=== PATIENT | female | born 1935 | race Caucasian/White ===

== ENCOUNTER → 2018-06-22 | Outpatient (CLI) | payer MEDICARE | END | disposition home or self-care (01) | LOC: CVU 13:32 | PROVIDERS: ATTEND Internal Medicine Cardiovascular Disease | DX: I65.23 Occlusion and stenosis of bilateral carotid arteries (principal); I10 Essential (primary) hypertension; Z85.3 Personal history of malignant neoplasm of breast | CPT/HCPCS: 93880 ==

== ENCOUNTER → 2018-09-08 | Outpatient (CLI) | payer MEDICARE | END | disposition home or self-care (01) | LOC: CFH 13:20 | PROVIDERS: ATTEND Family Medicine | DX: Z12.31 Encounter for screening mammogram for malignant neoplasm of breast (principal); Z13.820 Encounter for screening for osteoporosis; M81.0 Age-related osteoporosis without current pathological fracture | CPT/HCPCS: 77080; 77067 ==

== ENCOUNTER → 2018-10-24 | Outpatient (CLI) | payer MEDICARE | END | disposition home or self-care (01) | LOC: CFH 07:32 | PROVIDERS: ATTEND Family Medicine | DX: N63.11 Unspecified lump in the right breast, upper outer quadrant (principal) | CPT/HCPCS: 77065 ==

== ENCOUNTER → 2019-10-03 | Outpatient (CLI) | payer MEDICARE | END | disposition home or self-care (01) | LOC: RAD 10:13 | PROVIDERS: ATTEND Family Medicine | DX: M71.21 Synovial cyst of popliteal space [Baker], right knee (principal) ==

== ENCOUNTER → 2019-10-05 | Outpatient (CLI) | payer MEDICARE | END | disposition home or self-care (01) | LOC: WOUND 09:51 | PROVIDERS: ATTEND Podiatrist Foot & Ankle Surgery | DX: T87.89 Other complications of amputation stump (principal); L97.511 Non-pressure chronic ulcer of other part of right foot limited to breakdown of skin; I89.0 Lymphedema, not elsewhere classified; I10 Essential (primary) hypertension; Z85.3 Personal history of malignant neoplasm of breast; M81.0 Age-related osteoporosis without current pathological fracture; Z89.431 Acquired absence of right foot; Z90.710 Acquired absence of both cervix and uterus; Y83.5 Amputation of limb(s) as the cause of abnormal reaction of the patient, or of later complication, without mention of misadventure at the time of the procedure | CPT/HCPCS: 97597; G0463 ==

== ENCOUNTER 2019-10-12 14:47 | Outpatient (CLI) | payer MEDICARE | END 2019-10-12 23:59 | disposition home or self-care (01) | LOC: WOUND 14:47 | PROVIDERS: ATTEND Podiatrist Foot & Ankle Surgery | DX: T87.89 Other complications of amputation stump (principal); L97.511 Non-pressure chronic ulcer of other part of right foot limited to breakdown of skin; I89.0 Lymphedema, not elsewhere classified; I10 Essential (primary) hypertension; M81.0 Age-related osteoporosis without current pathological fracture; Z85.3 Personal history of malignant neoplasm of breast; Z89.431 Acquired absence of right foot; Z90.710 Acquired absence of both cervix and uterus; Y83.5 Amputation of limb(s) as the cause of abnormal reaction of the patient, or of later complication, without mention of misadventure at the time of the procedure | CPT/HCPCS: 97597 ==

== ENCOUNTER 2019-10-19 10:21 | Outpatient (CLI) | payer MEDICARE | END 2019-10-19 23:59 | disposition home or self-care (01) | LOC: WOUND 10:21 | PROVIDERS: ATTEND Podiatrist Foot & Ankle Surgery | DX: T87.89 Other complications of amputation stump (principal); L97.511 Non-pressure chronic ulcer of other part of right foot limited to breakdown of skin; I89.0 Lymphedema, not elsewhere classified; I10 Essential (primary) hypertension; M81.0 Age-related osteoporosis without current pathological fracture; Z85.3 Personal history of malignant neoplasm of breast; Z89.431 Acquired absence of right foot; Z90.710 Acquired absence of both cervix and uterus; Y83.5 Amputation of limb(s) as the cause of abnormal reaction of the patient, or of later complication, without mention of misadventure at the time of the procedure | CPT/HCPCS: 97597 ==

== ENCOUNTER 2019-10-26 09:51 | Outpatient (CLI) | payer MEDICARE | END 2019-10-26 23:59 | disposition home or self-care (01) | LOC: WOUND 09:51 | PROVIDERS: ATTEND Podiatrist Foot & Ankle Surgery | DX: T87.89 Other complications of amputation stump (principal); L97.511 Non-pressure chronic ulcer of other part of right foot limited to breakdown of skin; I89.0 Lymphedema, not elsewhere classified; I10 Essential (primary) hypertension; M81.0 Age-related osteoporosis without current pathological fracture; Z85.3 Personal history of malignant neoplasm of breast; Z89.431 Acquired absence of right foot; Z90.710 Acquired absence of both cervix and uterus; Y83.5 Amputation of limb(s) as the cause of abnormal reaction of the patient, or of later complication, without mention of misadventure at the time of the procedure | CPT/HCPCS: 97597 ==

== ENCOUNTER → 2019-11-02 | Outpatient (CLI) | payer MEDICARE | END | disposition home or self-care (01) | LOC: WOUND 10:15 | PROVIDERS: ATTEND Podiatrist Foot & Ankle Surgery | DX: T87.89 Other complications of amputation stump (principal); L97.511 Non-pressure chronic ulcer of other part of right foot limited to breakdown of skin; I89.0 Lymphedema, not elsewhere classified; I10 Essential (primary) hypertension; M81.0 Age-related osteoporosis without current pathological fracture; Z85.3 Personal history of malignant neoplasm of breast; Z89.431 Acquired absence of right foot; Z90.710 Acquired absence of both cervix and uterus; Y83.5 Amputation of limb(s) as the cause of abnormal reaction of the patient, or of later complication, without mention of misadventure at the time of the procedure | CPT/HCPCS: 97597 ==

== ENCOUNTER 2019-11-09 14:01 | Outpatient (CLI) | payer MEDICARE | END 2019-11-09 23:59 | disposition home or self-care (01) | LOC: WOUND 14:01 | PROVIDERS: ATTEND Podiatrist Foot & Ankle Surgery | DX: T87.89 Other complications of amputation stump (principal); L97.511 Non-pressure chronic ulcer of other part of right foot limited to breakdown of skin; I89.0 Lymphedema, not elsewhere classified; I10 Essential (primary) hypertension; M81.0 Age-related osteoporosis without current pathological fracture; Z85.3 Personal history of malignant neoplasm of breast; Z89.431 Acquired absence of right foot; Z90.710 Acquired absence of both cervix and uterus; Y83.5 Amputation of limb(s) as the cause of abnormal reaction of the patient, or of later complication, without mention of misadventure at the time of the procedure | CPT/HCPCS: 97597 ==

== ENCOUNTER → 2019-11-16 | Outpatient (CLI) | payer MEDICARE | END | disposition home or self-care (01) | LOC: WOUND 14:18 | PROVIDERS: ATTEND Podiatrist Foot & Ankle Surgery | DX: T87.89 Other complications of amputation stump (principal); L97.511 Non-pressure chronic ulcer of other part of right foot limited to breakdown of skin; I89.0 Lymphedema, not elsewhere classified; I10 Essential (primary) hypertension; M81.0 Age-related osteoporosis without current pathological fracture; Z85.3 Personal history of malignant neoplasm of breast; Z89.431 Acquired absence of right foot; Z90.710 Acquired absence of both cervix and uterus; Y83.5 Amputation of limb(s) as the cause of abnormal reaction of the patient, or of later complication, without mention of misadventure at the time of the procedure | CPT/HCPCS: 97597 ==

== ENCOUNTER 2019-11-23 14:58 | Outpatient (CLI) | payer MEDICARE | END 2019-11-23 23:59 | disposition home or self-care (01) | LOC: WOUND 14:58 | PROVIDERS: ATTEND Podiatrist Foot & Ankle Surgery | DX: T87.89 Other complications of amputation stump (principal); L97.511 Non-pressure chronic ulcer of other part of right foot limited to breakdown of skin; I89.0 Lymphedema, not elsewhere classified; I10 Essential (primary) hypertension; M81.0 Age-related osteoporosis without current pathological fracture; Z85.3 Personal history of malignant neoplasm of breast; Z89.431 Acquired absence of right foot; Z90.710 Acquired absence of both cervix and uterus; Y83.5 Amputation of limb(s) as the cause of abnormal reaction of the patient, or of later complication, without mention of misadventure at the time of the procedure | CPT/HCPCS: 97597 ==

== ENCOUNTER → 2019-12-01 | Outpatient (CLI) | payer MEDICARE | END | disposition home or self-care (01) | LOC: WOUND 08:13 | PROVIDERS: ATTEND Family Medicine | DX: T87.89 Other complications of amputation stump (principal); L97.511 Non-pressure chronic ulcer of other part of right foot limited to breakdown of skin; I89.0 Lymphedema, not elsewhere classified; I10 Essential (primary) hypertension; M81.0 Age-related osteoporosis without current pathological fracture; Z85.3 Personal history of malignant neoplasm of breast; Z89.431 Acquired absence of right foot; Z90.710 Acquired absence of both cervix and uterus; Y83.5 Amputation of limb(s) as the cause of abnormal reaction of the patient, or of later complication, without mention of misadventure at the time of the procedure | CPT/HCPCS: 97597 ==

== ENCOUNTER 2019-12-07 08:07 | Outpatient (CLI) | payer MEDICARE | END 2019-12-07 23:59 | disposition home or self-care (01) | LOC: WOUND 08:07 | PROVIDERS: ATTEND Podiatrist Foot & Ankle Surgery | DX: T87.89 Other complications of amputation stump (principal); L97.511 Non-pressure chronic ulcer of other part of right foot limited to breakdown of skin; I89.0 Lymphedema, not elsewhere classified; I10 Essential (primary) hypertension; M81.0 Age-related osteoporosis without current pathological fracture; Z85.3 Personal history of malignant neoplasm of breast; Z89.431 Acquired absence of right foot; Z90.710 Acquired absence of both cervix and uterus; Y83.5 Amputation of limb(s) as the cause of abnormal reaction of the patient, or of later complication, without mention of misadventure at the time of the procedure | CPT/HCPCS: 97597 ==

== ENCOUNTER → 2019-12-14 | Outpatient (CLI) | payer MEDICARE | END | disposition home or self-care (01) | LOC: WOUND 09:55 | PROVIDERS: ATTEND Podiatrist Foot & Ankle Surgery | DX: T87.89 Other complications of amputation stump (principal); L97.511 Non-pressure chronic ulcer of other part of right foot limited to breakdown of skin; I89.0 Lymphedema, not elsewhere classified; I10 Essential (primary) hypertension; M81.0 Age-related osteoporosis without current pathological fracture; Z85.3 Personal history of malignant neoplasm of breast; Z89.431 Acquired absence of right foot; Z90.710 Acquired absence of both cervix and uterus | CPT/HCPCS: 97597 ==

== ENCOUNTER 2019-12-23 10:39 | Emergency (ER) | payer MEDICARE ==
[~2019-12-23] VITALS: Ht 160 cm; Wt 66.4 kg
[2019-12-23] MEDS ORDERED: LISI-167 PO (11:17)
[2019-12-23] MEDS ORDERED: GABA300C10 PO (11:17)
[2019-12-23 11:37] LABS: BASOPHILS # (AUTO) 0.01 x10^3/uL (0-0.1); BASOPHILS % (AUTO) 0 % (0-1); EOSINOPHILS # (AUTO) 0.02 x10^3/uL (0-0.4); EOSINOPHILS % (AUTO) 0 % (1-7); LYMPHOCYTES # (AUTO) 0.52 x10^3/uL (1-3.4); LYMPHOCYTES % (AUTO) 7 % (22-44); MD NO; MEAN CORPUSCULAR HEMOGLOBIN 27.9 pg (27.0-34.8); MEAN CORPUSCULAR HGB CONC 31.5 g/dL (32.4-35.8); MEAN CORPUSCULAR VOLUME 88.5 fL (80-100); MEAN PLATELET VOLUME 8.6 fL (7.4-10.4); MONOCYTES # (AUTO) 0.55 x10^3/uL (0.2-0.8); MONOCYTES % (AUTO) 8 % (2-9); NEUTROPHILS # (AUTO) 6.09 x10^3/uL (1.8-6.8); NEUTROPHILS % (AUTO) 85 % (42-75); PLATELET COUNT 200 x10^3/uL (130-400); RED BLOOD COUNT 4.27 x10^6/uL (3.82-5.3); RED CELL DISTRIBUTION WIDTH 15.8 % (9.6-15.2)
[2019-12-23 11:40] LABS: ALANINE AMINOTRANSFERASE 26 U/L (12-78); ALBUMIN 3.4 g/dL (3.4-5.0); ANION GAP 6 mmol/L (5-15); CALCIUM 8.9 mg/dL (8.5-10.1); CHLORIDE 107 mmol/L (98-107); CREATININE 0.73 mg/dL (0.55-1.02)
[2019-12-23 11:42] LABS: ALKALINE PHOSPHATASE 101 U/L (45-117); BILIRUBIN,TOTAL 0.5 mg/dL (0.2-1.0)
--- NOTE | 2019-12-23 12:22 | NUR ---
ALL RESULTS BACK AT THIS TIME. CHART UP FOR RECHECK.
[2019-12-23 12:23] VITALS: BP 120/55
--- NOTE | 2019-12-23 12:23 | NUR ---
PT RESTING IN ROOM. VSS. DR. ALEXANDER TO BS TO UPDATE ON RESUTLS. AWAITING DISPO.
== END 2019-12-23 12:57 | disposition home or self-care (01) ==
LOC: ED 12:35
DX: M71.21 Synovial cyst of popliteal space [Baker], right knee (principal); I89.0 Lymphedema, not elsewhere classified; R00.0 Tachycardia, unspecified
CPT/HCPCS: 36415; 80053; 85025; 93005; 99285

== ENCOUNTER → 2019-12-28 | Outpatient (CLI) | payer MEDICARE ==
[~2019-12-28] MED LIST: GABA300C10 PO; LISI-167 PO
== END | disposition home or self-care (01) ==
LOC: WOUND 09:11
PROVIDERS: ATTEND Podiatrist Foot & Ankle Surgery
DX: T87.89 Other complications of amputation stump (principal); L97.511 Non-pressure chronic ulcer of other part of right foot limited to breakdown of skin; I89.0 Lymphedema, not elsewhere classified; I10 Essential (primary) hypertension; M81.0 Age-related osteoporosis without current pathological fracture; L84 Corns and callosities; Z85.3 Personal history of malignant neoplasm of breast; Z90.710 Acquired absence of both cervix and uterus; Y83.5 Amputation of limb(s) as the cause of abnormal reaction of the patient, or of later complication, without mention of misadventure at the time of the procedure
CPT/HCPCS: 97597

== ENCOUNTER → 2020-01-04 | Outpatient (CLI) | payer MEDICARE | END | disposition home or self-care (01) | LOC: WOUND 14:19 | PROVIDERS: ATTEND Podiatrist Foot & Ankle Surgery | DX: T87.89 Other complications of amputation stump (principal); L97.511 Non-pressure chronic ulcer of other part of right foot limited to breakdown of skin; L84 Corns and callosities; M81.0 Age-related osteoporosis without current pathological fracture; I10 Essential (primary) hypertension; I89.0 Lymphedema, not elsewhere classified; M79.89 Other specified soft tissue disorders; Z90.710 Acquired absence of both cervix and uterus; Z85.3 Personal history of malignant neoplasm of breast; Z89.431 Acquired absence of right foot; Y83.5 Amputation of limb(s) as the cause of abnormal reaction of the patient, or of later complication, without mention of misadventure at the time of the procedure | CPT/HCPCS: 97597 ==

== ENCOUNTER → 2020-01-11 | Outpatient (CLI) | payer MEDICARE | END | disposition home or self-care (01) | LOC: WOUND 08:23 | PROVIDERS: ATTEND Podiatrist Foot & Ankle Surgery | DX: T87.89 Other complications of amputation stump (principal); L97.511 Non-pressure chronic ulcer of other part of right foot limited to breakdown of skin; L84 Corns and callosities; I10 Essential (primary) hypertension; I89.0 Lymphedema, not elsewhere classified; M81.0 Age-related osteoporosis without current pathological fracture; M79.89 Other specified soft tissue disorders; Z90.710 Acquired absence of both cervix and uterus; Z89.431 Acquired absence of right foot; Z85.3 Personal history of malignant neoplasm of breast; Y83.5 Amputation of limb(s) as the cause of abnormal reaction of the patient, or of later complication, without mention of misadventure at the time of the procedure | CPT/HCPCS: 97597 ==

== ENCOUNTER 2020-01-18 10:17 | Outpatient (CLI) | payer MEDICARE | END 2020-01-18 23:59 | disposition home or self-care (01) | LOC: WOUND 10:17 | PROVIDERS: ATTEND Podiatrist Foot & Ankle Surgery | DX: L97.412 Non-pressure chronic ulcer of right heel and midfoot with fat layer exposed (principal); L03.115 Cellulitis of right lower limb; Z89.431 Acquired absence of right foot | CPT/HCPCS: 87070; 87077; 87186; 87205; 97597 ==

== ENCOUNTER 2020-08-26 07:30 | Outpatient (CLI) | payer MEDICARE ==
[~2020-08-26 07:30] MED LIST changes: +ASPI-515 PO; +ATOR10TA9 PO; +ATOR20TA37 PO; +CALCIUM; +CARV3.1212 PO; +CLOP75TA52 PO; +FURO-93 PO; +FURO40TA6 PO; +GABA-826 PO; +GABA100C PO; +LISI-170 PO; +MAGN400T9 PO; +POTA20TA6 PO; +SPIR25TA PO
== END 2020-08-26 23:59 | disposition home or self-care (01) ==
LOC: CFH 07:30
PROVIDERS: ATTEND Internal Medicine Cardiovascular Disease
DX: Z02.9 Encounter for administrative examinations, unspecified (principal)

== ENCOUNTER → 2020-11-06 | Outpatient (CLI) | payer MEDICARE ==
[~2020-11-06] MED LIST changes: -ASPI-515 PO; +ASPI-963 PO
== END | disposition home or self-care (01) ==
LOC: CFH 10:39
PROVIDERS: ATTEND Nurse Practitioner Family
DX: I08.8 Other rheumatic multiple valve diseases (principal); I11.0 Hypertensive heart disease with heart failure; I50.9 Heart failure, unspecified
CPT/HCPCS: 93306

== ENCOUNTER 2021-01-01 05:53 | Day surgery (SDC) | payer MEDICARE ==
[~2021-01-01] VITALS: Ht 157.5 cm; Wt 63.6 kg
[2021-01-01] MEDS ORDERED: TORS20TA2 PO (06:30)
[2021-01-01] MEDS ORDERED: Calcium PO (06:30)
[2021-01-01] MEDS ORDERED: CHOL10003 PO (06:30)
[2021-01-01] MEDS ORDERED: DOCU-131 PO (06:30)
[2021-01-01] MEDS ORDERED: POTA20TA14 PO (06:30)
[2021-01-01] MEDS ORDERED: ASPI81TA45 PO (06:30)
[2021-01-01 06:33] VITALS: BP 122/56
[2021-01-01 07:06] LABS: BASOPHILS % (AUTO) 1 % (0-1); EOSINOPHILS % (AUTO) 2 % (1-7); LYMPHOCYTES % (AUTO) 11 % (22-44); MEAN CORPUSCULAR HEMOGLOBIN 22.2 pg (27.0-34.8); MEAN PLATELET VOLUME 7.9 fL (7.4-10.4); MONOCYTES % (AUTO) 10 % (2-9); NEUTROPHILS % (AUTO) 76 % (42-75); PLATELET COUNT 228 x10^3/uL (130-400); RED BLOOD COUNT 3.78 x10^6/uL (3.82-5.3); RED CELL DISTRIBUTION WIDTH 21.4 % (9.6-15.2)
[2021-01-01 07:14] LABS: ANION GAP 5 mmol/L (5-15); CALCIUM 8.9 mg/dL (8.5-10.1); CHLORIDE 105 mmol/L (98-107)
[2021-01-01] MEDS ORDERED: FENTANYL PF 100 MCG/2ML ONE (07:16)
[2021-01-01] MEDS ORDERED: MIDAZOLAM 1 MG/ML, 5ML ONE (07:16)
[2021-01-01] MEDS ORDERED: TICAGRELOR 90 MG TABLET ONE (07:16)
[2021-01-01] MEDS ORDERED: HEPARIN 1,000 UNITS/ML, 10ML ONE (07:17)
[2021-01-01] MEDS ORDERED: VERAPAMIL 2.5 MG/ML, 2ML ONE (07:17)
[2021-01-01] MEDS ORDERED: BIVALIRUDIN 250 MG ONE (07:17)
[2021-01-01] MEDS ORDERED: LIDOCAINE-MPF 1%, 5ML ONE (07:17)
[2021-01-01 07:37] LABS: ANISOCYTOSIS 2+; MD MORPH REVIEW ONLY
[2021-01-01 07:38] LABS: <PLATELET ESTIMATE> ADEQUATE; <PLT MORPHOLOGY> NORMAL PLT MORPH; HYPOCHROMIA 1+; MICROCYTOSIS 2+; POLYCHROMASIA 1+
[2021-01-01] MEDS ORDERED: SODIUM CHLORIDE 0.9% 1,000 ML IV SCH (09:00)
== END 2021-01-01 13:32 | disposition home or self-care (01) ==
LOC: CACL 05:53
PROVIDERS: ATTEND Internal Medicine Cardiovascular Disease
DX: Z01.810 Encounter for preprocedural cardiovascular examination (principal); I34.0 Nonrheumatic mitral (valve) insufficiency; I11.0 Hypertensive heart disease with heart failure; I50.33 Acute on chronic diastolic (congestive) heart failure; I49.1 Atrial premature depolarization; I65.23 Occlusion and stenosis of bilateral carotid arteries; I73.9 Peripheral vascular disease, unspecified; Z79.02 Long term (current) use of antithrombotics/antiplatelets; Z79.82 Long term (current) use of aspirin; Z79.899 Other long term (current) drug therapy; Z91.048 Other nonmedicinal substance allergy status
CPT/HCPCS: 36415; 80048; 85025; 93458; 99156; C1769; C1894; J1644; J2250; J3010; Q9967; J0583

== ENCOUNTER 2021-02-19 11:11 | Inpatient (IN) | payer MEDICARE ==
[~2021-02-19] VITALS: Ht 157.5 cm; Wt 83.6 kg
[2021-02-19 05:40] VITALS: BP 100/61
[~2021-02-19 11:11] MED LIST changes: +ASPI81TA45 PO; +CHOL10003 PO; +Calcium PO; +DOCU-131 PO; +POTA20TA14 PO; +TORS20TA2 PO
--- NOTE | 2021-02-19 11:37 | NUR ---
PATIENT WHEELED BACK FROM TRIAGE WITH CHIEF C/O RIGHT HIP PAIN X1 DAY. PER PATIENT SHE WAS SEEN AT [facility] YESTERDAY, IMAGING WAS NEGATIVE. PATIENT WENT TO TODAY AND REFERRED TO ED. PATIENT UNABLE TO BEAR WEIGHT ON HER RIGHT LEG, NORMALLY INDEPENDENT AND MOBILE WITH USE OF WALKER AND CANE. NADN, A&O, VSS, ACCOMPANIED BY SON, SIDE RAILS UP X2, CALL LIGHT WITHIN REACH.
[2021-02-19 12:36] LABS: BASOPHILS % (AUTO) 0 % (0-1); EOSINOPHILS % (AUTO) 0 % (1-7); LYMPHOCYTES % (AUTO) 6 % (22-44); MEAN CORPUSCULAR HEMOGLOBIN 27.4 pg (27.0-34.8); MEAN CORPUSCULAR HGB CONC 32.1 g/dL (32.4-35.8); MEAN PLATELET VOLUME 8.5 fL (7.4-10.4); MONOCYTES % (AUTO) 10 % (2-9); NEUTROPHILS % (AUTO) 84 % (42-75); PLATELET COUNT 132 x10^3/uL (130-400); RED BLOOD COUNT 4.35 x10^6/uL (3.82-5.3); RED CELL DISTRIBUTION WIDTH 30.6 % (9.6-15.2)
[2021-02-19 12:48] LABS: ALANINE AMINOTRANSFERASE 16 U/L (12-78); ALBUMIN 3.1 g/dL (3.4-5.0); ANION GAP 3 mmol/L (5-15); CALCIUM 10.1 mg/dL (8.5-10.1); CHLORIDE 99 mmol/L (98-107); CREATININE 0.87 mg/dL (0.55-1.02)
[2021-02-19 12:51] LABS: ALKALINE PHOSPHATASE 63 U/L (45-117); BILIRUBIN,TOTAL 1.3 mg/dL (0.2-1.0); TOTAL PROTEIN 7.8 g/dL (6.4-8.2)
--- NOTE | 2021-02-19 12:54 | NUR ---
PATIENT TO CT SCAN.
--- NOTE | 2021-02-19 13:02 | NUR ---
PATIENT BACK FROM CT SCAN, CONNECTED TO MONITORS, VSS, SIDE RAILS UP X2, CALL LIGHT WITHIN REACH. WAITING FOR CT RESULTS.
[2021-02-19 13:16] LABS: ANISOCYTOSIS 2+; HYPOCHROMIA 2+; MICROCYTOSIS 1+; OVALOCYTES 1+; POLYCHROMASIA 1+
[2021-02-19 13:18] LABS: <PLATELET ESTIMATE> ADEQUATE; <PLT MORPHOLOGY> NORMAL PLT MORPH
--- NOTE | 2021-02-19 13:44 | NUR ---
ERMD AT BEDSIDE TO DISCUSS POC AND ADMISSION.
--- NOTE | 2021-02-19 13:51 | NUR ---
IMAGING AT BEDSIDE.
[2021-02-19] MEDS ORDERED: SODIUM CHLORIDE FLUSH 10ML SYR IVF ONE (14:00)
[2021-02-19] MEDS ORDERED: SODIUM CHLORIDE FLUSH 10ML SYR IVF PRN (14:00)
--- NOTE | 2021-02-19 14:07 | NUR ---
SM AT BEDSIDE FOR ADMISSION EVALUATION.
--- NOTE | 2021-02-19 14:25 | NUR ---
ATTEMPTED TO CALL REPORT.
[2021-02-19 14:26] LABS: MICROSCOPIC NOT IND
[2021-02-19] MEDS ORDERED: ENALAPRILAT 1.25 MG/ML, 2ML IVPush PRN (14:30)
[2021-02-19] MEDS ORDERED: GABAPENTIN 300 MG CAPSULE PO PRN (14:30)
[2021-02-19] MEDS ORDERED: ENOXAPARIN 40 MG/0.4 ML SQ SCH (14:30)
[2021-02-19] MEDS ORDERED: ONDANSETRON 2MG/ML, 2ML IVPush PRN (14:30)
[2021-02-19] MEDS ORDERED: morphine SULFATE 10 MG/ML, 1ML IVPush PRN (14:30)
[2021-02-19] MEDS ORDERED: MELATONIN 5 MG TABLET PO PRN (14:30)
[2021-02-19] MEDS ORDERED: ONDANSETRON ODT 4 MG PO PRN (14:30)
[2021-02-19] MEDS ORDERED: BISACODYL 10 MG SUPP PR PRN (14:30)
--- NOTE | 2021-02-19 14:34 | NUR ---
REPORT CALLED TO EDUARDO MORGAN FOR TRANSFER OF PATIENT CARE.
--- NOTE | 2021-02-19 14:58 | NUR ---
PATIENT TRANSFERRED IN STABLE CONDITION TO MEDICAL FLOOR VIA GURNEY WITH GEOPHYSICAL COMPUTER. SON AT BEDSIDE, ALL PATIENT BELONGINGS TAKEN TO FLOOR.
[2021-02-19] MEDS ORDERED: VANCOMYCIN PER PHARMACY MC PRN (15:00)
[2021-02-19] MEDS ORDERED: PHARMACOKINETIC CONSULTATION MC ONE (17:00)
[2021-02-19] MEDS ORDERED: VANCOMYCIN 1,400 MG in SODIUM CHLORIDE 0.9% 250 ML IV ONE (17:00)
[2021-02-19] MEDS ORDERED: PHARMACOKINETIC MONITORING MC PRN (17:00)
[2021-02-19] MEDS: [UNRECOGNIZED DRUG - REMARK] MC SCH ×2 (17:49→21:29)
[2021-02-19] MEDS: CARVEDILOL 3.125 MG TABLET PO SCH (18:07)
[2021-02-19] MEDS: GABAPENTIN 100 MG CAPSULE PO SCH ×2 (18:07→21:00)
[2021-02-19 20:00] VITALS: BP 106/61
[2021-02-20] VITALS (9 sets, daily range): BP systolic 77–107; BP diastolic 39–68
[2021-02-20] MEDS: [UNRECOGNIZED DRUG - REMARK] MC SCH (05:32)
[2021-02-20 05:52] LABS: BASOPHILS % (AUTO) 0 % (0-1); EOSINOPHILS % (AUTO) 0 % (1-7); LYMPHOCYTES % (AUTO) 9 % (22-44); MEAN CORPUSCULAR HEMOGLOBIN 27.6 pg (27.0-34.8); MEAN CORPUSCULAR HGB CONC 32.4 g/dL (32.4-35.8); MEAN PLATELET VOLUME 8.8 fL (7.4-10.4); MONOCYTES % (AUTO) 9 % (2-9); NEUTROPHILS % (AUTO) 82 % (42-75); PLATELET COUNT 119 x10^3/uL (130-400); RED BLOOD COUNT 3.72 x10^6/uL (3.82-5.3); RED CELL DISTRIBUTION WIDTH 29.6 % (9.6-15.2)
[2021-02-20 05:57] LABS: ANION GAP 5 mmol/L (5-15); CALCIUM 8.5 mg/dL (8.5-10.1); CHLORIDE 101 mmol/L (98-107)
[2021-02-20 05:59] LABS: CREATININE 0.82 mg/dL (0.55-1.02)
[2021-02-20] MEDS ORDERED: CLOP75TA52 PO (06:07)
[2021-02-20 06:23] LABS: ANISOCYTOSIS 2+
[2021-02-20 06:24] LABS: <PLATELET ESTIMATE> DECREASED; <PLT MORPHOLOGY> NORMAL PLT MORPH; MICROCYTOSIS 1+; OVALOCYTES 1+; TEAR DROPS 1+
[2021-02-20 07:56] LABS: VANCOMYCIN,RANDOM 16.2 mcg/mL
[2021-02-20] MEDS: SENNA/DOCUSATE TABLET PO SCH ×2 (09:00→10:02)
[2021-02-20] MEDS: SPIRONOLACTONE 25 MG TABLET PO SCH ×2 (09:00→10:01)
[2021-02-20] MEDS: TORSEMIDE 20 MG TABLET PO SCH ×2 (09:00→10:01)
[2021-02-20] MEDS: GABAPENTIN 100 MG CAPSULE PO SCH ×4 (09:00→20:15)
[2021-02-20] MEDS ORDERED: POTASSIUM CHLORIDE 20 MEQ TAB.ER.PRT PO ONE (09:00)
[2021-02-20] MEDS: POTASSIUM CHLORIDE 20 MEQ TAB.ER.PRT PO SCH (09:00)
[2021-02-20] MEDS ORDERED: CLOPIDOGREL 75 MG TABLET PO SCH (10:00)
[2021-02-20] MEDS: CALCIUM CITRATE 950 MG TABLET PO SCH (10:01)
[2021-02-20] MEDS: ASPIRIN 81 MG TABLET EC PO SCH (10:01)
[2021-02-20] MEDS: CARVEDILOL 3.125 MG TABLET PO SCH ×2 (10:01→10:20)
[2021-02-20] MEDS: CHOLECALCIFEROL 5,000u TAB PO SCH (10:02)
[2021-02-20] MEDS: VANCOMYCIN 1,200 MG in SODIUM CHLORIDE 0.9% 250 ML IV SCH (11:22)
[2021-02-20] MEDS ORDERED: METOPROLOL 1 MG/ML, 5ML IVPush ONE (12:00)
[2021-02-20] MEDS ORDERED: SODIUM CHLORIDE 0.9%, 500ML IVBOLUS ONE (12:30)
[2021-02-20] MEDS ORDERED: DIGOXIN 0.25 MG/ML, 2ML IVPush ONE (14:00)
[2021-02-20] MEDS ORDERED: POTASSIUM CHLORIDE 40 MEQ in SODIUM CHLORIDE 0.9% 500 ML IV ONE (14:00)
[2021-02-20] MEDS: DIGOXIN 0.25 MG/ML, 2ML IVPush SCH (20:15)
[2021-02-20] MEDS: APIXABAN 5 MG TABLET PO SCH (20:15)
[2021-02-21 00:50] VITALS: BP 107/71
[2021-02-21] MEDS: DIGOXIN 0.25 MG/ML, 2ML IVPush SCH (02:39)
[2021-02-21 05:11] LABS: BASOPHILS % (AUTO) 0 % (0-1); EOSINOPHILS % (AUTO) 0 % (1-7); LYMPHOCYTES % (AUTO) 10 % (22-44); MEAN CORPUSCULAR HGB CONC 31.8 g/dL (32.4-35.8); MEAN PLATELET VOLUME 9.1 fL (7.4-10.4); MONOCYTES % (AUTO) 15 % (2-9); NEUTROPHILS % (AUTO) 75 % (42-75); PLATELET COUNT 128 x10^3/uL (130-400); RED BLOOD COUNT 3.51 x10^6/uL (3.82-5.3); RED CELL DISTRIBUTION WIDTH 29.3 % (9.6-15.2)
[2021-02-21 05:17] LABS: ANION GAP 5 mmol/L (5-15); CALCIUM 7.7 mg/dL (8.5-10.1); CHLORIDE 107 mmol/L (98-107)
[2021-02-21 05:46] LABS: ANISOCYTOSIS 2+; HYPOCHROMIA 1+; MICROCYTOSIS 1+; OVALOCYTES 1+
[2021-02-21 05:47] LABS: <PLATELET ESTIMATE> DECREASED; <PLT MORPHOLOGY> NORMAL PLT MORPH
[2021-02-21] MEDS ORDERED: PROPOFOL 10 MG/ML, 20ML ONE (07:21)
[2021-02-21] MEDS ORDERED: AMIODARONE 150 MG in DEXTROSE 5% 100 ML IV ONE (08:00)
[2021-02-21] MEDS ORDERED: FILTER 0.22 MICRON IV PRN (08:00)
[2021-02-21 08:40] VITALS: BP 96/50
[2021-02-21] MEDS ORDERED: DIGOXIN 0.125 MG TABLET PO SCH (09:00)
[2021-02-21 09:02] VITALS: BP 109/55
[2021-02-21] MEDS: AMIODARONE 450 MG in DEXTROSE 5% 241 ML IV PRN ×2 (09:04→17:02)
[2021-02-21] MEDS: ASPIRIN 81 MG TABLET EC PO SCH (09:05)
[2021-02-21] MEDS: APIXABAN 5 MG TABLET PO SCH ×2 (09:05→22:22)
[2021-02-21] MEDS: CALCIUM CITRATE 950 MG TABLET PO SCH (09:05)
[2021-02-21] MEDS: SENNA/DOCUSATE TABLET PO SCH (09:05)
[2021-02-21] MEDS: GABAPENTIN 100 MG CAPSULE PO SCH ×3 (09:05→22:23)
[2021-02-21] MEDS: CHOLECALCIFEROL 5,000u TAB PO SCH (09:05)
[2021-02-21] MEDS: POTASSIUM CHLORIDE 20 MEQ TAB.ER.PRT PO SCH (09:05)
[2021-02-21] MEDS: SPIRONOLACTONE 25 MG TABLET PO SCH (09:25)
[2021-02-21 12:09] VITALS: BP 112/59
[2021-02-21] MEDS: VANCOMYCIN 1,200 MG in SODIUM CHLORIDE 0.9% 250 ML IV SCH (14:17)
[2021-02-21] MEDS: TORSEMIDE 20 MG TABLET PO SCH (14:17)
[2021-02-21 19:00] VITALS: BP 148/105
[2021-02-22 01:09] VITALS: BP 100/62
[2021-02-22] MEDS: AMIODARONE 450 MG in DEXTROSE 5% 241 ML IV PRN (06:57)
[2021-02-22 07:35] VITALS: BP 93/51
[2021-02-22] MEDS: SPIRONOLACTONE 25 MG TABLET PO SCH (09:00)
[2021-02-22] MEDS: TORSEMIDE 20 MG TABLET PO SCH (09:00)
[2021-02-22 11:24] VITALS: BP 91/51
[2021-02-22] MEDS: CALCIUM CITRATE 950 MG TABLET PO SCH (11:25)
[2021-02-22] MEDS: POTASSIUM CHLORIDE 20 MEQ TAB.ER.PRT PO SCH (11:26)
[2021-02-22] MEDS: CHOLECALCIFEROL 5,000u TAB PO SCH (11:26)
[2021-02-22] MEDS: APIXABAN 5 MG TABLET PO SCH (11:26)
[2021-02-22] MEDS: GABAPENTIN 100 MG CAPSULE PO SCH ×3 (11:26→22:28)
[2021-02-22] MEDS: ASPIRIN 81 MG TABLET EC PO SCH (11:26)
[2021-02-22] MEDS: SENNA/DOCUSATE TABLET PO SCH (11:26)
[2021-02-22 13:46] VITALS: BP 99/63
[2021-02-22] MEDS: VANCOMYCIN 1,200 MG in SODIUM CHLORIDE 0.9% 250 ML IV SCH ×2 (14:38→15:42)
[2021-02-22] MEDS ORDERED: METOCLOPRAMIDE 5 MG/ML, 2ML IVPush PRN (18:00)
[2021-02-22] MEDS: POLYETHYLENE GLYCOL 17 GM PACKET PO SCH ×2 (18:11→22:30)
[2021-02-22 19:58] VITALS: BP 97/54
[2021-02-22] MEDS ORDERED: HEPARIN 5,000 UNITS/ML, 1ML IV PRN (21:00)
[2021-02-22] MEDS ORDERED: HEPARIN 25,000 UNITS/250ML PMX 250 ML IV PRN (21:00)
[2021-02-22 22:30] VITALS: BP 94/56
[2021-02-22] MEDS: ATORVASTATIN 40 MG TABLET PO SCH (22:30)
[2021-02-22] MEDS: AMIODARONE 200 MG TABLET PO SCH (22:30)
[2021-02-23 00:34] VITALS: BP 93/54
[2021-02-23 06:52] VITALS: BP 111/71
[2021-02-23] MEDS: CHOLECALCIFEROL 5,000u TAB PO SCH (09:00)
[2021-02-23] MEDS: CALCIUM CITRATE 950 MG TABLET PO SCH (09:28)
[2021-02-23] MEDS: ASPIRIN 81 MG TABLET EC PO SCH (09:28)
[2021-02-23] MEDS: SPIRONOLACTONE 25 MG TABLET PO SCH (09:29)
[2021-02-23] MEDS: GABAPENTIN 100 MG CAPSULE PO SCH ×3 (09:29→20:43)
[2021-02-23] MEDS: TORSEMIDE 20 MG TABLET PO SCH (09:29)
[2021-02-23] MEDS: POTASSIUM CHLORIDE 20 MEQ TAB.ER.PRT PO SCH (09:29)
[2021-02-23] MEDS: AMIODARONE 200 MG TABLET PO SCH ×2 (09:29→20:43)
[2021-02-23] MEDS: PSYLLIUM PACKET PO SCH (09:30)
[2021-02-23] MEDS: SENNA/DOCUSATE TABLET PO SCH (09:30)
[2021-02-23] MEDS: POLYETHYLENE GLYCOL 17 GM PACKET PO SCH ×3 (09:30→20:42)
[2021-02-23 12:50] VITALS: BP 105/70
[2021-02-23 13:05] LABS: HCT (SEDRATE) 31.4 % (34.6-47.8)
[2021-02-23] MEDS: VANCOMYCIN 1,200 MG in SODIUM CHLORIDE 0.9% 250 ML IV SCH (15:39)
[2021-02-23 19:03] VITALS: BP 94/55
[2021-02-23] MEDS: ATORVASTATIN 40 MG TABLET PO SCH (20:43)
[2021-02-24 01:02] VITALS: BP 102/56
[2021-02-24 01:04] VITALS: BP 98/52
[2021-02-24 08:50] VITALS: BP 107/62
[2021-02-24] MEDS: ASPIRIN 81 MG TABLET EC PO SCH (08:56)
[2021-02-24] MEDS: TORSEMIDE 20 MG TABLET PO SCH (08:56)
[2021-02-24] MEDS: AMIODARONE 200 MG TABLET PO SCH ×2 (08:56→21:17)
[2021-02-24] MEDS: SPIRONOLACTONE 25 MG TABLET PO SCH (08:56)
[2021-02-24] MEDS: CALCIUM CITRATE 950 MG TABLET PO SCH (08:56)
[2021-02-24] MEDS: POLYETHYLENE GLYCOL 17 GM PACKET PO SCH ×3 (08:57→21:16)
[2021-02-24] MEDS: PSYLLIUM PACKET PO SCH (08:57)
[2021-02-24] MEDS: GABAPENTIN 100 MG CAPSULE PO SCH ×3 (08:57→21:17)
[2021-02-24] MEDS: SENNA/DOCUSATE TABLET PO SCH (08:57)
[2021-02-24] MEDS: POTASSIUM CHLORIDE 20 MEQ TAB.ER.PRT PO SCH (08:57)
[2021-02-24] MEDS: CHOLECALCIFEROL 5,000u TAB PO SCH (08:57)
[2021-02-24] MEDS ORDERED: LIDOCAINE 1%, 10ML ONE ×2 (09:01→14:07)
[2021-02-24 12:39] VITALS: BP 96/58
[2021-02-24] MEDS ORDERED: MIDAZOLAM 1 MG/ML, 5ML ONE (13:24)
[2021-02-24] MEDS ORDERED: FLUMAZENIL 0.1 MG/1 ML, 5ML ONE (13:24)
[2021-02-24] MEDS ORDERED: FENTANYL PF 100 MCG/2ML ONE ×2 (13:24)
[2021-02-24] MEDS ORDERED: HEPARIN 1,000 UNITS/ML, 10ML ONE (13:24)
[2021-02-24] MEDS ORDERED: NALOXONE 1 MG/ML, 2ML ONE (13:24)
[2021-02-24] MEDS ORDERED: PROTAMINE SULFATE 10 MG/ML, 25ML ONE (13:25)
[2021-02-24] MEDS: VANCOMYCIN 1,200 MG in SODIUM CHLORIDE 0.9% 250 ML IV SCH (18:03)
[2021-02-24 18:07] VITALS: BP 97/63
[2021-02-24] MEDS: DAPTOMYCIN 450 MG in SODIUM CHLORIDE 0.9% 100 ML IVPB SCH (21:16)
[2021-02-24] MEDS: CEFEPIME 2 GM in DEXTROSE 5% 100 ML IV SCH (21:16)
[2021-02-25 00:01] VITALS: BP 109/57
[2021-02-25] MEDS: CEFEPIME 2 GM in DEXTROSE 5% 100 ML IV SCH ×3 (05:15→22:47)
[2021-02-25 06:28] VITALS: BP 108/63
[2021-02-25] MEDS: CALCIUM CITRATE 950 MG TABLET PO SCH (09:39)
[2021-02-25] MEDS: POTASSIUM CHLORIDE 20 MEQ TAB.ER.PRT PO SCH (09:39)
[2021-02-25] MEDS: ASPIRIN 81 MG TABLET EC PO SCH (09:39)
[2021-02-25] MEDS: TORSEMIDE 20 MG TABLET PO SCH (09:40)
[2021-02-25] MEDS: AMIODARONE 200 MG TABLET PO SCH ×2 (09:41→22:47)
[2021-02-25] MEDS: SPIRONOLACTONE 25 MG TABLET PO SCH (09:41)
[2021-02-25] MEDS: CHOLECALCIFEROL 5,000u TAB PO SCH (09:42)
[2021-02-25] MEDS: GABAPENTIN 100 MG CAPSULE PO SCH ×3 (09:42→22:47)
[2021-02-25] MEDS: PSYLLIUM PACKET PO SCH (09:53)
[2021-02-25] MEDS: SENNA/DOCUSATE TABLET PO SCH (09:53)
[2021-02-25] MEDS: POLYETHYLENE GLYCOL 17 GM PACKET PO SCH ×3 (09:53→22:47)
[2021-02-25] MEDS ORDERED: HEPARIN 25,000 UNITS/250ML PMX 250 ML IV PRN (12:30)
[2021-02-25 13:09] VITALS: BP 110/75
[2021-02-25] MEDS: HEPARIN 25,000 UNITS/250ML PMX 250 ML IV PRN (14:29)
[2021-02-25] MEDS: DAPTOMYCIN 450 MG in SODIUM CHLORIDE 0.9% 100 ML IVPB SCH (18:01)
[2021-02-25 19:15] VITALS: BP 109/72
[2021-02-26 01:11] LABS: OCCULT BLOOD NEGATIVE (NEGATIVE)
[2021-02-26 01:20] VITALS: BP 99/66
[2021-02-26] MEDS: CEFEPIME 2 GM in DEXTROSE 5% 100 ML IV SCH (06:00)
[2021-02-26 06:20] LABS: MEAN CORPUSCULAR HEMOGLOBIN 27.8 pg (27.0-34.8); MEAN CORPUSCULAR HGB CONC 32.2 g/dL (32.4-35.8); MEAN PLATELET VOLUME 8.9 fL (7.4-10.4); PLATELET COUNT 236 x10^3/uL (130-400); RED BLOOD COUNT 3.51 x10^6/uL (3.82-5.3); RED CELL DISTRIBUTION WIDTH 28.6 % (9.6-15.2)
[2021-02-26 06:25] LABS: ANION GAP 6 mmol/L (5-15); CALCIUM 8.5 mg/dL (8.5-10.1); CHLORIDE 105 mmol/L (98-107); CREATININE 0.79 mg/dL (0.55-1.02)
[2021-02-26 06:50] LABS: BAND#(MANUAL) 2.25 x10^3/uL; BANDS%(MANUAL) 21 % (0-7); EOS#(MANUAL) 0.11 x10^3/uL (0.0-0.4); EOS% (MANUAL) 1 % (1-7); LYMPH#(MANUAL) 0.75 x10^3/uL (1-3.4); LYMPHS% (MANUAL) 7 % (22-44); MONOS#(MANUAL) 0.54 x10^3/uL (0.3-2.7); MONOS% (MANUAL) 5 % (2-9); SEG#(MANUAL) 7.06 x10^3/uL (1.8-6.8); SEGS% (MANUAL) 66 % (42-75)
[2021-02-26 06:51] LABS: ANISOCYTOSIS 2+; HYPOCHROMIA 1+; MICROCYTOSIS 1+; OVALOCYTES 1+; TEAR DROPS 1+
[2021-02-26 06:52] LABS: <PLATELET ESTIMATE> ADEQUATE; <PLT MORPHOLOGY> NORMAL PLT MORPH; TOXIC GRAN 1+
[2021-02-26] MEDS ORDERED: GADOTERATE 7.5 MMOL/15ML SYR ONE (07:31)
[2021-02-26] MEDS: SENNA/DOCUSATE TABLET PO SCH (09:00)
[2021-02-26] MEDS: PSYLLIUM PACKET PO SCH (09:00)
[2021-02-26 10:00] VITALS: BP 107/53
[2021-02-26] MEDS: POLYETHYLENE GLYCOL 17 GM PACKET PO SCH ×3 (11:32→21:00)
[2021-02-26] MEDS: TORSEMIDE 20 MG TABLET PO SCH (11:36)
[2021-02-26] MEDS: GABAPENTIN 100 MG CAPSULE PO SCH ×3 (11:37→20:16)
[2021-02-26] MEDS: AMIODARONE 200 MG TABLET PO SCH (11:39)
[2021-02-26] MEDS: ASPIRIN 81 MG TABLET EC PO SCH (11:39)
[2021-02-26] MEDS: CALCIUM CITRATE 950 MG TABLET PO SCH (11:41)
[2021-02-26] MEDS: CHOLECALCIFEROL 5,000u TAB PO SCH (11:43)
[2021-02-26] MEDS: SPIRONOLACTONE 25 MG TABLET PO SCH (11:43)
[2021-02-26] MEDS: POTASSIUM CHLORIDE 20 MEQ TAB.ER.PRT PO SCH (11:44)
[2021-02-26 12:14] VITALS: BP 124/85
[2021-02-26] MEDS: PIPERACILLIN/TAZO 4.5 GM in DEXTROSE 5% 100 ML IVPB SCH ×2 (13:44→20:16)
[2021-02-26] MEDS: DAPTOMYCIN 450 MG in SODIUM CHLORIDE 0.9% 100 ML IVPB SCH (19:25)
[2021-02-26] MEDS: HEPARIN 25,000 UNITS/250ML PMX 250 ML IV PRN (19:29)
[2021-02-26 20:12] VITALS: BP 120/57
[2021-02-27 01:38] VITALS: BP 102/59
[2021-02-27] MEDS: PIPERACILLIN/TAZO 4.5 GM in DEXTROSE 5% 100 ML IVPB SCH ×4 (01:43→21:15)
[2021-02-27] MEDS: ACETAMINOPHEN 325 MG TABLET PO PRN (05:50)
[2021-02-27 07:10] VITALS: BP 104/62
[2021-02-27] MEDS: CALCIUM CITRATE 950 MG TABLET PO SCH (09:00)
[2021-02-27] MEDS: PSYLLIUM PACKET PO SCH (09:00)
[2021-02-27] MEDS: AMIODARONE 200 MG TABLET PO SCH (09:00)
[2021-02-27] MEDS: ASPIRIN 81 MG TABLET EC PO SCH (09:01)
[2021-02-27] MEDS: GABAPENTIN 100 MG CAPSULE PO SCH ×3 (09:01→21:15)
[2021-02-27] MEDS: SPIRONOLACTONE 25 MG TABLET PO SCH (09:01)
[2021-02-27] MEDS: CHOLECALCIFEROL 5,000u TAB PO SCH (09:01)
[2021-02-27] MEDS: TORSEMIDE 20 MG TABLET PO SCH (09:01)
[2021-02-27] MEDS: POTASSIUM CHLORIDE 20 MEQ TAB.ER.PRT PO SCH (09:03)
[2021-02-27] MEDS: POLYETHYLENE GLYCOL 17 GM PACKET PO SCH ×3 (09:12→21:15)
[2021-02-27] MEDS: SENNA/DOCUSATE TABLET PO SCH (09:12)
[2021-02-27 12:32] VITALS: BP 93/53
[2021-02-27 18:46] VITALS: BP 87/55
[2021-02-27 19:39] VITALS: BP 103/66
[2021-02-27] MEDS: DAPTOMYCIN 450 MG in SODIUM CHLORIDE 0.9% 100 ML IVPB SCH (19:43)
[2021-02-28 02:04] VITALS: BP 93/43
[2021-02-28] MEDS: PIPERACILLIN/TAZO 4.5 GM in DEXTROSE 5% 100 ML IVPB SCH ×4 (03:12→21:57)
[2021-02-28] MEDS: HEPARIN 25,000 UNITS/250ML PMX 250 ML IV PRN (05:59)
[2021-02-28] MEDS: HEPARIN 5,000 UNITS/ML, 1ML IV PRN ×3 (06:04→21:56)
[2021-02-28 06:40] VITALS: BP 105/66
[2021-02-28] MEDS: CHOLECALCIFEROL 5,000u TAB PO SCH (09:38)
[2021-02-28] MEDS: TORSEMIDE 20 MG TABLET PO SCH (09:38)
[2021-02-28] MEDS: PSYLLIUM PACKET PO SCH (09:38)
[2021-02-28] MEDS: ASPIRIN 81 MG TABLET EC PO SCH (09:38)
[2021-02-28] MEDS: POTASSIUM CHLORIDE 20 MEQ TAB.ER.PRT PO SCH (09:38)
[2021-02-28] MEDS: POLYETHYLENE GLYCOL 17 GM PACKET PO SCH ×3 (09:38→20:10)
[2021-02-28] MEDS: GABAPENTIN 100 MG CAPSULE PO SCH ×3 (09:38→20:11)
[2021-02-28] MEDS: CALCIUM CITRATE 950 MG TABLET PO SCH (09:39)
[2021-02-28] MEDS: AMIODARONE 200 MG TABLET PO SCH (09:39)
[2021-02-28] MEDS: SENNA/DOCUSATE TABLET PO SCH (09:39)
[2021-02-28] MEDS: SPIRONOLACTONE 25 MG TABLET PO SCH (09:40)
[2021-02-28 13:15] VITALS: BP 90/54
[2021-02-28] MEDS: DAPTOMYCIN 450 MG in SODIUM CHLORIDE 0.9% 100 ML IVPB SCH (18:22)
[2021-02-28 19:16] VITALS: BP 107/65
[2021-03-01 01:18] VITALS: BP 95/53
[2021-03-01] MEDS: PIPERACILLIN/TAZO 4.5 GM in DEXTROSE 5% 100 ML IVPB SCH ×4 (04:08→22:14)
[2021-03-01] MEDS: HEPARIN 25,000 UNITS/250ML PMX 250 ML IV PRN (04:24)
[2021-03-01 06:30] VITALS: BP 88/50
[2021-03-01] MEDS: SPIRONOLACTONE 25 MG TABLET PO SCH (08:19)
[2021-03-01] MEDS: TORSEMIDE 5 MG TAB PO SCH (08:20)
[2021-03-01] MEDS: PSYLLIUM PACKET PO SCH (08:23)
[2021-03-01] MEDS: POTASSIUM CHLORIDE 20 MEQ TAB.ER.PRT PO SCH (08:23)
[2021-03-01] MEDS: POLYETHYLENE GLYCOL 17 GM PACKET PO SCH ×3 (08:23→22:14)
[2021-03-01] MEDS: GABAPENTIN 100 MG CAPSULE PO SCH ×3 (08:24→22:14)
[2021-03-01] MEDS: CHOLECALCIFEROL 5,000u TAB PO SCH (08:24)
[2021-03-01] MEDS: CALCIUM CITRATE 950 MG TABLET PO SCH (08:24)
[2021-03-01] MEDS: SENNA/DOCUSATE TABLET PO SCH (08:25)
[2021-03-01] MEDS: AMIODARONE 200 MG TABLET PO SCH (08:25)
[2021-03-01] MEDS: ASPIRIN 81 MG TABLET EC PO SCH (08:26)
[2021-03-01 08:40] LABS: MEAN CORPUSCULAR HEMOGLOBIN 27.7 pg (27.0-34.8); PLATELET COUNT 351 x10^3/uL (130-400); RED BLOOD COUNT 3.62 x10^6/uL (3.82-5.3)
[2021-03-01 08:52] LABS: ALANINE AMINOTRANSFERASE 24 U/L (12-78); ALBUMIN 1.6 g/dL (3.4-5.0); ANION GAP 6 mmol/L (5-15); CHLORIDE 106 mmol/L (98-107); CREATININE 0.78 mg/dL (0.55-1.02)
[2021-03-01 08:54] LABS: ALKALINE PHOSPHATASE 116 U/L (45-117); BILIRUBIN,TOTAL 0.5 mg/dL (0.2-1.0)
[2021-03-01 09:01] LABS: ANISOCYTOSIS 1+; BANDS%(MANUAL) 4 % (0-7); LYMPH#(MANUAL) 0.89 x10^3/uL (1-3.4); LYMPHS% (MANUAL) 9 % (22-44); METAMYELOCYTES% (MANUAL) 1 % (0-1); MONOS#(MANUAL) 0.59 x10^3/uL (0.3-2.7); MONOS% (MANUAL) 6 % (2-9); SEG#(MANUAL) 7.92 x10^3/uL (1.8-6.8); SEGS% (MANUAL) 80 % (42-75)
[2021-03-01 09:02] LABS: <PLATELET ESTIMATE> ADEQUATE; <PLT MORPHOLOGY> NORMAL PLT MORPH; HYPOCHROMIA 1+; OVALOCYTES 1+; POLYCHROMASIA 1+; TEAR DROPS 1+
[2021-03-01] MEDS: ACETAMINOPHEN 325 MG TABLET PO PRN (12:58)
[2021-03-01 12:59] VITALS: BP 114/73
[2021-03-01] MEDS ORDERED: PINK LADY ENEMA 490 ML BOTTLE PR ONE (14:00)
[2021-03-01] MEDS: DAPTOMYCIN 450 MG in SODIUM CHLORIDE 0.9% 100 ML IVPB SCH (18:01)
[2021-03-01 19:24] VITALS: BP 112/66
[2021-03-02 01:05] VITALS: BP 100/51
[2021-03-02] MEDS: PIPERACILLIN/TAZO 4.5 GM in DEXTROSE 5% 100 ML IVPB SCH ×4 (04:22→23:34)
[2021-03-02] MEDS: HEPARIN 25,000 UNITS/250ML PMX 250 ML IV PRN (05:46)
[2021-03-02] MEDS: HEPARIN 5,000 UNITS/ML, 1ML IV PRN (06:29)
[2021-03-02 06:42] VITALS: BP 101/52
[2021-03-02] MEDS: GABAPENTIN 100 MG CAPSULE PO SCH ×3 (08:37→21:39)
[2021-03-02] MEDS: POTASSIUM CHLORIDE 20 MEQ TAB.ER.PRT PO SCH (08:37)
[2021-03-02] MEDS: SPIRONOLACTONE 25 MG TABLET PO SCH (08:37)
[2021-03-02] MEDS: ASPIRIN 81 MG TABLET EC PO SCH (08:37)
[2021-03-02] MEDS: TORSEMIDE 5 MG TAB PO SCH (08:38)
[2021-03-02] MEDS: CALCIUM CITRATE 950 MG TABLET PO SCH (08:38)
[2021-03-02] MEDS: CHOLECALCIFEROL 5,000u TAB PO SCH (08:41)
[2021-03-02] MEDS: POLYETHYLENE GLYCOL 17 GM PACKET PO SCH ×3 (08:42→21:41)
[2021-03-02] MEDS: AMIODARONE 200 MG TABLET PO SCH (08:42)
[2021-03-02] MEDS: PSYLLIUM PACKET PO SCH (08:42)
[2021-03-02] MEDS: SENNA/DOCUSATE TABLET PO SCH (08:42)
[2021-03-02 08:49] VITALS: BP 108/55
[2021-03-02 13:37] VITALS: BP 122/63
[2021-03-02] MEDS: DAPTOMYCIN 450 MG in SODIUM CHLORIDE 0.9% 100 ML IVPB SCH (18:40)
[2021-03-02 19:55] VITALS: BP 98/64
[2021-03-03 00:02] VITALS: BP 106/49
[2021-03-03] MEDS: HEPARIN 25,000 UNITS/250ML PMX 250 ML IV PRN ×2 (02:53→23:32)
[2021-03-03] MEDS: PIPERACILLIN/TAZO 4.5 GM in DEXTROSE 5% 100 ML IVPB SCH ×4 (05:48→23:33)
[2021-03-03 06:00] LABS: HCT (SEDRATE) 28.4 % (34.6-47.8)
[2021-03-03 06:06] LABS: CHLORIDE 106 mmol/L (98-107)
[2021-03-03 06:18] LABS: BASOPHILS % (AUTO) 1 % (0-1); EOSINOPHILS % (AUTO) 2 % (1-7); LYMPHOCYTES % (AUTO) 10 % (22-44); MEAN CORPUSCULAR HEMOGLOBIN 28.1 pg (27.0-34.8); MEAN CORPUSCULAR HGB CONC 32.8 g/dL (32.4-35.8); MEAN PLATELET VOLUME 7.8 fL (7.4-10.4); MONOCYTES % (AUTO) 8 % (2-9); NEUTROPHILS % (AUTO) 80 % (42-75); PLATELET COUNT 401 x10^3/uL (130-400); RED BLOOD COUNT 3.32 x10^6/uL (3.82-5.3); RED CELL DISTRIBUTION WIDTH 27.3 % (9.6-15.2)
[2021-03-03 06:26] LABS: ALANINE AMINOTRANSFERASE 20 U/L (12-78); ALBUMIN 1.7 g/dL (3.4-5.0); ALKALINE PHOSPHATASE 94 U/L (45-117); ANION GAP 4 mmol/L (5-15); BILIRUBIN,TOTAL 0.4 mg/dL (0.2-1.0); CALCIUM 9.1 mg/dL (8.5-10.1); CREATINE KINASE, TOTAL 9 U/L (26-192); CREATININE 0.67 mg/dL (0.55-1.02); TOTAL PROTEIN 5.9 g/dL (6.4-8.2)
[2021-03-03 06:44] VITALS: BP 104/52
[2021-03-03] MEDS: POLYETHYLENE GLYCOL 17 GM PACKET PO SCH ×3 (07:59→21:00)
[2021-03-03] MEDS: SENNA/DOCUSATE TABLET PO SCH (07:59)
[2021-03-03] MEDS: CALCIUM CITRATE 950 MG TABLET PO SCH (08:05)
[2021-03-03] MEDS: GABAPENTIN 100 MG CAPSULE PO SCH ×3 (08:05→21:50)
[2021-03-03] MEDS: TORSEMIDE 5 MG TAB PO SCH (08:05)
[2021-03-03] MEDS: ASPIRIN 81 MG TABLET EC PO SCH (08:05)
[2021-03-03] MEDS: AMIODARONE 200 MG TABLET PO SCH (08:06)
[2021-03-03] MEDS: POTASSIUM CHLORIDE 20 MEQ TAB.ER.PRT PO SCH (08:06)
[2021-03-03] MEDS: SPIRONOLACTONE 25 MG TABLET PO SCH (08:06)
[2021-03-03] MEDS: PSYLLIUM PACKET PO SCH (08:08)
[2021-03-03] MEDS: CHOLECALCIFEROL 5,000u TAB PO SCH (08:12)
[2021-03-03 15:32] VITALS: BP 113/64
[2021-03-03 18:28] VITALS: BP 100/58
[2021-03-03] MEDS: DAPTOMYCIN 450 MG in SODIUM CHLORIDE 0.9% 100 ML IVPB SCH (19:28)
[2021-03-04 02:22] VITALS: BP 100/57
[2021-03-04] MEDS: PIPERACILLIN/TAZO 4.5 GM in DEXTROSE 5% 100 ML IVPB SCH ×4 (05:30→23:19)
[2021-03-04] MEDS: PSYLLIUM PACKET PO SCH (07:17)
[2021-03-04] MEDS: SENNA/DOCUSATE TABLET PO SCH (07:18)
[2021-03-04] MEDS: POLYETHYLENE GLYCOL 17 GM PACKET PO SCH ×3 (07:18→21:00)
[2021-03-04 07:30] VITALS: BP 106/62
[2021-03-04] MEDS: AMIODARONE 200 MG TABLET PO SCH (07:43)
[2021-03-04] MEDS: CHOLECALCIFEROL 5,000u TAB PO SCH (07:43)
[2021-03-04] MEDS: POTASSIUM CHLORIDE 20 MEQ TAB.ER.PRT PO SCH (07:43)
[2021-03-04] MEDS: GABAPENTIN 100 MG CAPSULE PO SCH ×3 (07:44→21:01)
[2021-03-04] MEDS: TORSEMIDE 5 MG TAB PO SCH (07:44)
[2021-03-04] MEDS: CALCIUM CITRATE 950 MG TABLET PO SCH (07:44)
[2021-03-04] MEDS: SPIRONOLACTONE 25 MG TABLET PO SCH (07:44)
[2021-03-04] MEDS: ASPIRIN 81 MG TABLET EC PO SCH (07:44)
[2021-03-04 13:03] VITALS: BP 102/49
[2021-03-04] MEDS: DAPTOMYCIN 450 MG in SODIUM CHLORIDE 0.9% 100 ML IVPB SCH (18:42)
[2021-03-04 18:46] VITALS: BP 97/53
[2021-03-04] MEDS: HEPARIN 25,000 UNITS/250ML PMX 250 ML IV PRN (21:03)
[2021-03-05 01:46] VITALS: BP 110/59
[2021-03-05] MEDS: PIPERACILLIN/TAZO 4.5 GM in DEXTROSE 5% 100 ML IVPB SCH ×4 (05:33→23:22)
[2021-03-05 05:42] LABS: MEAN CORPUSCULAR HEMOGLOBIN 28.3 pg (27.0-34.8); MEAN CORPUSCULAR HGB CONC 32.4 g/dL (32.4-35.8); MEAN PLATELET VOLUME 7.6 fL (7.4-10.4); PLATELET COUNT 421 x10^3/uL (130-400); RED BLOOD COUNT 3.42 x10^6/uL (3.82-5.3); RED CELL DISTRIBUTION WIDTH 27.2 % (9.6-15.2)
[2021-03-05 05:48] LABS: ALBUMIN 1.7 g/dL (3.4-5.0); ANION GAP 3 mmol/L (5-15); CALCIUM 9.6 mg/dL (8.5-10.1); CHLORIDE 108 mmol/L (98-107)
[2021-03-05 05:52] LABS: ALANINE AMINOTRANSFERASE 22 U/L (12-78); ALKALINE PHOSPHATASE 87 U/L (45-117); BILIRUBIN,TOTAL 0.4 mg/dL (0.2-1.0); CREATININE 0.67 mg/dL (0.55-1.02); TOTAL PROTEIN 6.3 g/dL (6.4-8.2)
[2021-03-05 06:41] LABS: BAND#(MANUAL) 0.23 x10^3/uL; BANDS%(MANUAL) 3 % (0-7); EOS#(MANUAL) 0.15 x10^3/uL (0.0-0.4); EOS% (MANUAL) 2 % (1-7); LYMPH#(MANUAL) 1.65 x10^3/uL (1-3.4); LYMPHS% (MANUAL) 22 % (22-44); MONOS#(MANUAL) 0.38 x10^3/uL (0.3-2.7); MONOS% (MANUAL) 5 % (2-9); SEGS% (MANUAL) 68 % (42-75)
[2021-03-05 06:42] LABS: <PLATELET ESTIMATE> INCREASED; <PLT MORPHOLOGY> NORMAL PLT MORPH; HYPOCHROMIA 1+; OVALOCYTES 1+; TEAR DROPS 1+
[2021-03-05 07:42] VITALS: BP 109/67
[2021-03-05] MEDS: SENNA/DOCUSATE TABLET PO SCH (09:00)
[2021-03-05] MEDS: CALCIUM CITRATE 950 MG TABLET PO SCH (09:00)
[2021-03-05] MEDS: ASPIRIN 81 MG TABLET EC PO SCH (09:00)
[2021-03-05] MEDS: POLYETHYLENE GLYCOL 17 GM PACKET PO SCH ×3 (09:00→20:21)
[2021-03-05] MEDS: POTASSIUM CHLORIDE 20 MEQ TAB.ER.PRT PO SCH (09:00)
[2021-03-05] MEDS: GABAPENTIN 100 MG CAPSULE PO SCH ×3 (09:00→20:14)
[2021-03-05] MEDS: CHOLECALCIFEROL 5,000u TAB PO SCH (09:00)
[2021-03-05] MEDS: PSYLLIUM PACKET PO SCH (09:00)
[2021-03-05] MEDS: AMIODARONE 200 MG TABLET PO SCH (10:40)
[2021-03-05 12:15] VITALS: BP 118/70
[2021-03-05] MEDS ORDERED: TRANEXAMIC ACID 100 MG/ML, 10ML ONE ×2 (14:22→14:23)
[2021-03-05] MEDS ORDERED: KETOROLAC 60 MG/2 ML ONE (14:22)
[2021-03-05] MEDS ORDERED: VANCOMYCIN 1,000 MG ONE (14:23)
[2021-03-05] MEDS ORDERED: SODIUM CHLORIDE 0.9% 50 ML ONE (14:23)
[2021-03-05] MEDS ORDERED: ROPIvacaine/PF 0.2%, 20 ML ONE (14:23)
[2021-03-05] MEDS ORDERED: EPINEPHRINE 1 MG/ML, 1ML ONE (14:23)
[2021-03-05] MEDS ORDERED: OXYcodone 5 MG/5 ML ORAL.SOL UDC PO PRN (14:30)
[2021-03-05] MEDS ORDERED: FENTANYL PF 100 MCG/2ML IV PRN (14:30)
[2021-03-05] MEDS ORDERED: HYDROmorphone 1 MG/ML, 1ML INJ IVPush PRN (14:30)
[2021-03-05] MEDS ORDERED: ONDANSETRON 2MG/ML, 2ML IVPush PRN (14:30)
[2021-03-05] MEDS ORDERED: MEPERIDINE/PF 25MG/0.5ML IVPush PRN (14:30)
[2021-03-05] MEDS ORDERED: HYDROcodone/APAP 7.5-325MG/15ML UDC PO PRN (14:30)
[2021-03-05] MEDS ORDERED: CHLORHEXIDINE 15 ML UDC PO ONE (15:00)
[2021-03-05] MEDS ORDERED: HEPARIN 5,000 UNITS/ML, 1ML IV ONE (15:30)
[2021-03-05] MEDS: HEPARIN 25,000 UNITS/250ML PMX 250 ML IV PRN (17:06)
[2021-03-05] MEDS: CLOTRIMAZOLE TROCHES 10 MG PO SCH ×3 (17:16→20:14)
[2021-03-05 20:11] VITALS: BP 115/56
[2021-03-05] MEDS: DAPTOMYCIN 450 MG in SODIUM CHLORIDE 0.9% 100 ML IVPB SCH (20:14)
[2021-03-05] MEDS: HEPARIN 5,000 UNITS/ML, 1ML IV PRN (23:21)
[2021-03-06 01:21] VITALS: BP 101/56
[2021-03-06] MEDS: CLOTRIMAZOLE TROCHES 10 MG PO SCH ×5 (05:25→22:14)
[2021-03-06] MEDS: PIPERACILLIN/TAZO 4.5 GM in DEXTROSE 5% 100 ML IVPB SCH ×4 (05:25→23:53)
[2021-03-06 07:57] VITALS: BP 113/69
[2021-03-06] MEDS: POTASSIUM CHLORIDE 20 MEQ TAB.ER.PRT PO SCH (08:59)
[2021-03-06] MEDS: AMIODARONE 200 MG TABLET PO SCH (08:59)
[2021-03-06] MEDS: CALCIUM CITRATE 950 MG TABLET PO SCH (08:59)
[2021-03-06] MEDS: ASPIRIN 81 MG TABLET EC PO SCH (09:00)
[2021-03-06] MEDS: SENNA/DOCUSATE TABLET PO SCH (09:00)
[2021-03-06] MEDS: PSYLLIUM PACKET PO SCH (09:00)
[2021-03-06] MEDS: GABAPENTIN 100 MG CAPSULE PO SCH ×3 (09:00→21:43)
[2021-03-06] MEDS: CHOLECALCIFEROL 5,000u TAB PO SCH (09:00)
[2021-03-06] MEDS: POLYETHYLENE GLYCOL 17 GM PACKET PO SCH ×3 (09:00→20:15)
[2021-03-06 20:14] VITALS: BP 128/60
[2021-03-06] MEDS: DAPTOMYCIN 450 MG in SODIUM CHLORIDE 0.9% 100 ML IVPB SCH (20:15)
[2021-03-06] MEDS: HEPARIN 25,000 UNITS/250ML PMX 250 ML IV PRN (22:23)
[2021-03-07 01:13] VITALS: BP 111/67
[2021-03-07] MEDS: CLOTRIMAZOLE TROCHES 10 MG PO SCH ×5 (05:41→22:10)
[2021-03-07] MEDS: PIPERACILLIN/TAZO 4.5 GM in DEXTROSE 5% 100 ML IVPB SCH ×3 (05:45→18:03)
[2021-03-07] MEDS ORDERED: CHLORHEXIDINE 15 ML UDC ONE (06:06)
[2021-03-07 06:07] VITALS: BP 116/75
[2021-03-07] MEDS ORDERED: CHLORHEXIDINE 15 ML UDC PO ONE ×2 (06:30→07:30)
[2021-03-07] MEDS ORDERED: KETOROLAC 60 MG/2 ML ONE (07:14)
[2021-03-07] MEDS ORDERED: METHYLENE BLUE 50 MG/10 ML AMP ONE (07:14)
[2021-03-07] MEDS ORDERED: VANCOMYCIN 1,000 MG ONE (07:14)
[2021-03-07] MEDS ORDERED: ROPIvacaine/PF 0.5%, 20 ML ONE (07:14)
[2021-03-07] MEDS ORDERED: TRANEXAMIC ACID 100 MG/ML, 10ML ONE ×2 (07:14)
[2021-03-07] MEDS ORDERED: SODIUM CHLORIDE 0.9% 0 ML ONE (07:15)
[2021-03-07] MEDS ORDERED: EPINEPHRINE 1 MG/ML, 1ML ONE (07:15)
[2021-03-07] MEDS ORDERED: LACTATED RINGERS 1,000 ML IV SCH (07:30)
[2021-03-07] MEDS ORDERED: SUGAMMADEX 200 MG/2 ML IVPush ONE (07:37)
[2021-03-07] MEDS ORDERED: SUCCINYLCHOLINE 20 MG/ML, 10ML ONE (07:37)
[2021-03-07] MEDS ORDERED: CEFAZOLIN 1,000 MG ONE (07:37)
[2021-03-07] MEDS ORDERED: EPHEDRINE 50 MG/ML, 1ML ONE (07:37)
[2021-03-07] MEDS ORDERED: NEOSTIGMINE 1 MG/ML, 10ML ONE (07:37)
[2021-03-07] MEDS ORDERED: ROCURONIUM 10 MG/ML,10ML ONE (07:37)
[2021-03-07] MEDS ORDERED: ETOMIDATE 20 MG/10 ML ONE (07:37)
[2021-03-07] MEDS ORDERED: MIDAZOLAM 1 MG/ML, 5ML ONE (07:37)
[2021-03-07] MEDS ORDERED: PROMETHAZINE 25 MG/ML, 1ML IV PRN (09:00)
[2021-03-07] MEDS ORDERED: ALBUTEROL SULFATE 2.5 MG/3 ML NPPB PRN (09:00)
[2021-03-07] MEDS ORDERED: FENTANYL PF 100 MCG/2ML IV PRN (09:00)
[2021-03-07] MEDS ORDERED: METOCLOPRAMIDE 5 MG/ML, 2ML IV PRN (09:00)
[2021-03-07] MEDS ORDERED: hydrALAzine 20 MG/ML, 1ML IV PRN (09:00)
[2021-03-07] MEDS ORDERED: KETOROLAC 30 MG/1 ML IV PRN (09:00)
[2021-03-07] MEDS ORDERED: MEPERIDINE/PF 25MG/0.5ML IVPush PRN (09:00)
[2021-03-07] MEDS ORDERED: DIAZEPAM 5 MG/ML, 2ML IV PRN ×2 (09:00)
[2021-03-07] MEDS ORDERED: OXYcodone 5 MG/5 ML ORAL.SOL UDC PO PRN (09:00)
[2021-03-07] MEDS ORDERED: LABETALOL 5MG/ML, 20ML IV PRN (09:00)
[2021-03-07] MEDS ORDERED: ONDANSETRON 2MG/ML, 2ML IVPush PRN (09:00)
[2021-03-07] MEDS ORDERED: HYDROmorphone 1 MG/ML, 1ML INJ IV PRN (09:00)
[2021-03-07 09:53] LABS: INTERNATIONAL NORMALIZED RATIO 1.06 (0.93-1.1); PROTHROMBIN TIME 11.3 Seconds (9.6-11.5)
[2021-03-07 10:03] LABS: ALBUMIN 1.6 g/dL (3.4-5.0); ANION GAP 5 mmol/L (5-15); CALCIUM 9.5 mg/dL (8.5-10.1); CHLORIDE 108 mmol/L (98-107)
[2021-03-07 10:19] LABS: ALANINE AMINOTRANSFERASE 20 U/L (12-78); ALKALINE PHOSPHATASE 83 U/L (45-117); BILIRUBIN,TOTAL 0.3 mg/dL (0.2-1.0); CREATININE 0.66 mg/dL (0.55-1.02); TOTAL PROTEIN 6.4 g/dL (6.4-8.2)
[2021-03-07] MEDS: AMIODARONE 200 MG TABLET PO SCH (11:47)
[2021-03-07] MEDS: POTASSIUM CHLORIDE 20 MEQ TAB.ER.PRT PO SCH (11:47)
[2021-03-07] MEDS: CHOLECALCIFEROL 5,000u TAB PO SCH (11:47)
[2021-03-07] MEDS: GABAPENTIN 100 MG CAPSULE PO SCH ×3 (11:47→22:10)
[2021-03-07] MEDS: ASPIRIN 81 MG TABLET EC PO SCH (11:48)
[2021-03-07] MEDS: SENNA/DOCUSATE TABLET PO SCH (11:49)
[2021-03-07] MEDS: POLYETHYLENE GLYCOL 17 GM PACKET PO SCH ×3 (11:49→21:00)
[2021-03-07] MEDS: CALCIUM CITRATE 950 MG TABLET PO SCH (11:50)
[2021-03-07] MEDS: PSYLLIUM PACKET PO SCH (11:50)
[2021-03-07 11:51] LABS: BASOPHILS % (AUTO) 1 % (0-1); EOSINOPHILS % (AUTO) 1 % (1-7); LYMPHOCYTES % (AUTO) 11 % (22-44); MEAN CORPUSCULAR HEMOGLOBIN 27.9 pg (27.0-34.8); MEAN PLATELET VOLUME 7.5 fL (7.4-10.4); MONOCYTES % (AUTO) 8 % (2-9); NEUTROPHILS % (AUTO) 79 % (42-75); PLATELET COUNT 382 x10^3/uL (130-400); RED BLOOD COUNT 3.65 x10^6/uL (3.82-5.3); RED CELL DISTRIBUTION WIDTH 26.9 % (9.6-15.2)
[2021-03-07 14:30] VITALS: BP 124/78
[2021-03-07 21:01] VITALS: BP 104/64
[2021-03-07] MEDS: DAPTOMYCIN 450 MG in SODIUM CHLORIDE 0.9% 100 ML IVPB SCH (23:33)
[2021-03-08] MEDS: PIPERACILLIN/TAZO 4.5 GM in DEXTROSE 5% 100 ML IVPB SCH ×5 (00:27→23:58)
[2021-03-08 02:34] VITALS: BP 109/69
[2021-03-08] MEDS: CLOTRIMAZOLE TROCHES 10 MG PO SCH ×5 (05:59→21:18)
[2021-03-08 07:13] LABS: BASOPHILS % (AUTO) 1 % (0-1); EOSINOPHILS % (AUTO) 2 % (1-7); LYMPHOCYTES % (AUTO) 16 % (22-44); MEAN CORPUSCULAR HEMOGLOBIN 27.9 pg (27.0-34.8); MEAN CORPUSCULAR HGB CONC 31.9 g/dL (32.4-35.8); MEAN PLATELET VOLUME 7.5 fL (7.4-10.4); MONOCYTES % (AUTO) 8 % (2-9); NEUTROPHILS % (AUTO) 73 % (42-75); PLATELET COUNT 342 x10^3/uL (130-400); RED BLOOD COUNT 3.29 x10^6/uL (3.82-5.3); RED CELL DISTRIBUTION WIDTH 26.6 % (9.6-15.2)
[2021-03-08 07:21] LABS: ALBUMIN 1.6 g/dL (3.4-5.0); ANION GAP 4 mmol/L (5-15); CALCIUM 9.1 mg/dL (8.5-10.1); CHLORIDE 108 mmol/L (98-107); CREATININE 0.66 mg/dL (0.55-1.02)
[2021-03-08] MEDS: POLYETHYLENE GLYCOL 17 GM PACKET PO SCH ×3 (07:22→21:00)
[2021-03-08] MEDS: PSYLLIUM PACKET PO SCH (07:22)
[2021-03-08] MEDS: SENNA/DOCUSATE TABLET PO SCH (07:22)
[2021-03-08 07:46] LABS: HYPOCHROMIA 1+; OVALOCYTES 1+; TARGET CELLS 1+
[2021-03-08 07:47] LABS: <PLATELET ESTIMATE> ADEQUATE; <PLT MORPHOLOGY> NORMAL PLT MORPH
[2021-03-08 08:25] VITALS: BP 132/69
[2021-03-08] MEDS: ASPIRIN 81 MG TABLET EC PO SCH (09:15)
[2021-03-08] MEDS: CALCIUM CITRATE 950 MG TABLET PO SCH (09:15)
[2021-03-08] MEDS: CHOLECALCIFEROL 5,000u TAB PO SCH (09:16)
[2021-03-08] MEDS: GABAPENTIN 100 MG CAPSULE PO SCH ×3 (09:16→21:18)
[2021-03-08] MEDS: AMIODARONE 200 MG TABLET PO SCH (09:17)
[2021-03-08] MEDS: POTASSIUM CHLORIDE 20 MEQ TAB.ER.PRT PO SCH (09:20)
[2021-03-08 14:15] VITALS: BP 108/67
[2021-03-08 21:06] VITALS: BP 109/67
[2021-03-08] MEDS: DAPTOMYCIN 450 MG in SODIUM CHLORIDE 0.9% 100 ML IVPB SCH (23:07)
[2021-03-08] MEDS: METHOCARBAMOL 500 MG TABLET PO PRN (23:58)
[2021-03-09 02:33] VITALS: BP 95/58
[2021-03-09] MEDS: CLOTRIMAZOLE TROCHES 10 MG PO SCH ×5 (06:05→20:38)
[2021-03-09] MEDS: PIPERACILLIN/TAZO 4.5 GM in DEXTROSE 5% 100 ML IVPB SCH ×3 (06:05→18:37)
[2021-03-09 06:21] VITALS: BP 109/67
[2021-03-09 08:10] VITALS: BP 123/62
[2021-03-09] MEDS: POLYETHYLENE GLYCOL 17 GM PACKET PO SCH ×3 (09:00→19:44)
[2021-03-09] MEDS: CALCIUM CITRATE 950 MG TABLET PO SCH (09:00)
[2021-03-09] MEDS: PSYLLIUM PACKET PO SCH (09:00)
[2021-03-09] MEDS: SENNA/DOCUSATE TABLET PO SCH (09:00)
[2021-03-09] MEDS: GABAPENTIN 100 MG CAPSULE PO SCH ×3 (09:48→20:38)
[2021-03-09] MEDS: ASPIRIN 81 MG TABLET EC PO SCH (09:49)
[2021-03-09] MEDS: CHOLECALCIFEROL 5,000u TAB PO SCH (09:49)
[2021-03-09] MEDS: POTASSIUM CHLORIDE 20 MEQ TAB.ER.PRT PO SCH (09:49)
[2021-03-09] MEDS: AMIODARONE 200 MG TABLET PO SCH (09:49)
[2021-03-09 13:31] VITALS: BP 116/71
[2021-03-09 13:38] VITALS: BP 116/71
[2021-03-09] MEDS: METHOCARBAMOL 500 MG TABLET PO PRN (16:24)
[2021-03-09 19:12] VITALS: BP 128/75
[2021-03-09] MEDS: DAPTOMYCIN 450 MG in SODIUM CHLORIDE 0.9% 100 ML IVPB SCH (23:17)
[2021-03-10] MEDS: PIPERACILLIN/TAZO 4.5 GM in DEXTROSE 5% 100 ML IVPB SCH ×4 (01:01→18:29)
[2021-03-10] MEDS: METHOCARBAMOL 500 MG TABLET PO PRN ×2 (01:01→23:10)
[2021-03-10 01:03] VITALS: BP 126/77
[2021-03-10] MEDS: CLOTRIMAZOLE TROCHES 10 MG PO SCH ×5 (05:22→21:43)
[2021-03-10 06:44] LABS: HCT (SEDRATE) 26.3 % (34.6-47.8)
[2021-03-10 06:48] LABS: BASOPHILS % (AUTO) 2 % (0-1); EOSINOPHILS % (AUTO) 3 % (1-7); LYMPHOCYTES % (AUTO) 20 % (22-44); MEAN CORPUSCULAR HEMOGLOBIN 28.2 pg (27.0-34.8); MEAN CORPUSCULAR HGB CONC 32.4 g/dL (32.4-35.8); MEAN PLATELET VOLUME 7.7 fL (7.4-10.4); MONOCYTES % (AUTO) 11 % (2-9); NEUTROPHILS % (AUTO) 65 % (42-75); PLATELET COUNT 301 x10^3/uL (130-400); RED BLOOD COUNT 3.06 x10^6/uL (3.82-5.3)
[2021-03-10 06:58] LABS: ALBUMIN 1.7 g/dL (3.4-5.0); ANION GAP 4 mmol/L (5-15); CALCIUM 9.6 mg/dL (8.5-10.1); CHLORIDE 109 mmol/L (98-107)
[2021-03-10 07:06] LABS: ALANINE AMINOTRANSFERASE 18 U/L (12-78); ALKALINE PHOSPHATASE 83 U/L (45-117); BILIRUBIN,TOTAL 0.4 mg/dL (0.2-1.0); CREATINE KINASE, TOTAL 11 U/L (26-192); CREATININE 0.63 mg/dL (0.55-1.02); TOTAL PROTEIN 6.1 g/dL (6.4-8.2)
[2021-03-10 08:09] VITALS: BP 130/69
[2021-03-10] MEDS: POLYETHYLENE GLYCOL 17 GM PACKET PO SCH ×3 (09:00→21:00)
[2021-03-10] MEDS: PSYLLIUM PACKET PO SCH (09:00)
[2021-03-10] MEDS: CALCIUM CITRATE 950 MG TABLET PO SCH (09:00)
[2021-03-10] MEDS: SENNA/DOCUSATE TABLET PO SCH (09:00)
[2021-03-10] MEDS: ASPIRIN 81 MG TABLET EC PO SCH (09:57)
[2021-03-10] MEDS: POTASSIUM CHLORIDE 20 MEQ TAB.ER.PRT PO SCH (09:57)
[2021-03-10] MEDS: AMIODARONE 200 MG TABLET PO SCH (09:58)
[2021-03-10] MEDS: CHOLECALCIFEROL 5,000u TAB PO SCH (09:59)
[2021-03-10] MEDS: GABAPENTIN 100 MG CAPSULE PO SCH ×3 (09:59→21:43)
[2021-03-10 14:02] VITALS: BP 126/72
[2021-03-10 19:22] VITALS: BP 127/70
[2021-03-11 01:02] VITALS: BP 120/75
[2021-03-11] MEDS: DAPTOMYCIN 450 MG in SODIUM CHLORIDE 0.9% 100 ML IVPB SCH (01:18)
[2021-03-11] MEDS: PIPERACILLIN/TAZO 4.5 GM in DEXTROSE 5% 100 ML IVPB SCH ×4 (01:44→21:58)
[2021-03-11] MEDS: CLOTRIMAZOLE TROCHES 10 MG PO SCH ×5 (06:00→21:58)
[2021-03-11 07:53] VITALS: BP 135/84
[2021-03-11] MEDS: GABAPENTIN 100 MG CAPSULE PO SCH ×3 (08:47→21:58)
[2021-03-11] MEDS: ASPIRIN 81 MG TABLET EC PO SCH (08:47)
[2021-03-11] MEDS: CHOLECALCIFEROL 5,000u TAB PO SCH (08:47)
[2021-03-11] MEDS: POLYETHYLENE GLYCOL 17 GM PACKET PO SCH ×3 (08:47→21:58)
[2021-03-11] MEDS: PSYLLIUM PACKET PO SCH (08:47)
[2021-03-11] MEDS: CALCIUM CITRATE 950 MG TABLET PO SCH (08:47)
[2021-03-11] MEDS: POTASSIUM CHLORIDE 20 MEQ TAB.ER.PRT PO SCH (08:47)
[2021-03-11] MEDS: SENNA/DOCUSATE TABLET PO SCH (08:47)
[2021-03-11] MEDS: AMIODARONE 200 MG TABLET PO SCH (08:47)
[2021-03-11 08:57] LABS: BASOPHILS % (AUTO) 1 % (0-1); EOSINOPHILS % (AUTO) 3 % (1-7); LYMPHOCYTES % (AUTO) 15 % (22-44); MEAN CORPUSCULAR HEMOGLOBIN 28.4 pg (27.0-34.8); MEAN CORPUSCULAR HGB CONC 32.3 g/dL (32.4-35.8); MEAN PLATELET VOLUME 7.7 fL (7.4-10.4); MONOCYTES % (AUTO) 9 % (2-9); NEUTROPHILS % (AUTO) 73 % (42-75); PLATELET COUNT 299 x10^3/uL (130-400); RED BLOOD COUNT 3.03 x10^6/uL (3.82-5.3); RED CELL DISTRIBUTION WIDTH 26.9 % (9.6-15.2)
[2021-03-11 09:07] LABS: ANION GAP 6 mmol/L (5-15); CALCIUM 10.1 mg/dL (8.5-10.1); CHLORIDE 109 mmol/L (98-107); CREATININE 0.58 mg/dL (0.55-1.02)
[2021-03-11] MEDS: APIXABAN 5 MG TABLET PO SCH ×2 (11:47→21:58)
[2021-03-11 13:29] VITALS: BP 130/81
[2021-03-11 18:31] VITALS: BP 125/71
[2021-03-12 01:04] VITALS: BP 117/67
[2021-03-12] MEDS: DAPTOMYCIN 450 MG in SODIUM CHLORIDE 0.9% 100 ML IVPB SCH (01:46)
[2021-03-12] MEDS: PIPERACILLIN/TAZO 4.5 GM in DEXTROSE 5% 100 ML IVPB SCH ×3 (03:13→16:00)
[2021-03-12] MEDS: CLOTRIMAZOLE TROCHES 10 MG PO SCH ×3 (06:03→13:06)
[2021-03-12 06:25] VITALS: BP 121/62
[2021-03-12] MEDS: PSYLLIUM PACKET PO SCH (08:44)
[2021-03-12] MEDS: SENNA/DOCUSATE TABLET PO SCH (08:44)
[2021-03-12] MEDS: POLYETHYLENE GLYCOL 17 GM PACKET PO SCH ×2 (08:44→16:00)
[2021-03-12] MEDS: POTASSIUM CHLORIDE 20 MEQ TAB.ER.PRT PO SCH (09:39)
[2021-03-12] MEDS: GABAPENTIN 100 MG CAPSULE PO SCH ×2 (09:39→16:00)
[2021-03-12] MEDS: AMIODARONE 200 MG TABLET PO SCH (09:39)
[2021-03-12] MEDS: CALCIUM CITRATE 950 MG TABLET PO SCH (09:39)
[2021-03-12] MEDS: ASPIRIN 81 MG TABLET EC PO SCH (09:39)
[2021-03-12] MEDS: APIXABAN 5 MG TABLET PO SCH (09:40)
[2021-03-12] MEDS: CHOLECALCIFEROL 5,000u TAB PO SCH (09:40)
[2021-03-12 12:20] VITALS: BP 110/55
[2021-03-12] MEDS ORDERED: APIX5TAB PO (14:06)
[2021-03-12] MEDS ORDERED: METH-639 PO (14:06)
[2021-03-12] MEDS ORDERED: AMIO200T42 PO (14:06)
[2021-03-12] MEDS ORDERED: DAPT500V3 IV (14:06)
[2021-03-12] MEDS ORDERED: PIPE4.5F2 IV (14:06)
== END 2021-03-12 16:24 | DRG 252 ==
LOC: ED 11:29 → SUATTDRO 13:53 → 3N 13:55 → 5SO 02-20 11:34 → 3N 02-27 17:35 → 4NE 03-07 09:30
PROVIDERS: ADMIT Internal Medicine; ATTEND Family Medicine
PROC: 0T9B70Z Drainage of Bladder with Drainage Device, Via Natural or Artificial Opening (ICD-10-PCS; 2021-02-19)
PROC: B246ZZ4 Ultrasonography of Right and Left Heart, Transesophageal (ICD-10-PCS; 2021-02-21)
PROC: 5A2204Z Restoration of Cardiac Rhythm, Single (ICD-10-PCS; 2021-02-21)
PROC: 0Y9C3ZZ Drainage of Right Upper Leg, Percutaneous Approach (ICD-10-PCS; principal; 2021-02-24)
PROC: 047K3Z1 Dilation of Right Femoral Artery using Drug-Coated Balloon, Percutaneous Approach (ICD-10-PCS; 2021-02-24)
PROC: B41F1ZZ Fluoroscopy of Right Lower Extremity Arteries using Low Osmolar Contrast (ICD-10-PCS; 2021-02-24)
PROC: B44FZZZ Ultrasonography of Right Lower Extremity Arteries (ICD-10-PCS; 2021-02-24)
PROC: B44LZZZ Ultrasonography of Femoral Artery (ICD-10-PCS; 2021-02-24)
PROC: B54 Imaging, Veins, Ultrasonography (ICD-10-PCS; 2021-02-24)
PROC: 05HY33Z Insertion of Infusion Device into Upper Vein, Percutaneous Approach (ICD-10-PCS; 2021-02-24)
PROC: B54MZZA Ultrasonography of Right Upper Extremity Veins, Guidance (ICD-10-PCS; 2021-02-24)
PROC: 04HY32Z Insertion of Monitoring Device into Lower Artery, Percutaneous Approach (ICD-10-PCS; 2021-03-07)
PROC: 4A133B1 Monitoring of Arterial Pressure, Peripheral, Percutaneous Approach (ICD-10-PCS; 2021-03-07)
DX: T82.856A Stenosis of peripheral vascular stent, initial encounter (principal); A41.02 Sepsis due to Methicillin resistant Staphylococcus aureus; I50.43 Acute on chronic combined systolic (congestive) and diastolic (congestive) heart failure; J96.01 Acute respiratory failure with hypoxia; T84.51XA Infection and inflammatory reaction due to internal right hip prosthesis, initial encounter; S32.10XA Unspecified fracture of sacrum, initial encounter for closed fracture; L03.115 Cellulitis of right lower limb; D68.69 Other thrombophilia; B15.9 Hepatitis A without hepatic coma; M86.8X7 Other osteomyelitis, ankle and foot; I34.0 Nonrheumatic mitral (valve) insufficiency; I48.91 Unspecified atrial fibrillation; I27.20 Pulmonary hypertension, unspecified; B37.9 Candidiasis, unspecified; B95.62 Methicillin resistant Staphylococcus aureus infection as the cause of diseases classified elsewhere; E78.5 Hyperlipidemia, unspecified; G62.9 Polyneuropathy, unspecified; G89.29 Other chronic pain; I11.0 Hypertensive heart disease with heart failure; I70.221 Atherosclerosis of native arteries of extremities with rest pain, right leg; K59.00 Constipation, unspecified; L97.519 Non-pressure chronic ulcer of other part of right foot with unspecified severity; M16.11 Unilateral primary osteoarthritis, right hip; M81.0 Age-related osteoporosis without current pathological fracture; W01.0XXA Fall on same level from slipping, tripping and stumbling without subsequent striking against object, initial encounter; Y83.1 Surgical operation with implant of artificial internal device as the cause of abnormal reaction of the patient, or of later complication, without mention of misadventure at the time of the procedure; Z20.822 Contact with and (suspected) exposure to COVID-19; Z53.9 Procedure and treatment not carried out, unspecified reason; Z66 Do not resuscitate; Z96.643 Presence of artificial hip joint, bilateral; Z96.652 Presence of left artificial knee joint; D63.8 Anemia in other chronic diseases classified elsewhere; Y83.8 Other surgical procedures as the cause of abnormal reaction of the patient, or of later complication, without mention of misadventure at the time of the procedure; R33.9 Retention of urine, unspecified; R53.81 Other malaise; Y83.2 Surgical operation with anastomosis, bypass or graft as the cause of abnormal reaction of the patient, or of later complication, without mention of misadventure at the time of the procedure; Y92.009 Unspecified place in unspecified non-institutional (private) residence as the place of occurrence of the external cause; Z79.82 Long term (current) use of aspirin; Z85.3 Personal history of malignant neoplasm of breast; Z90.12 Acquired absence of left breast and nipple; Z90.710 Acquired absence of both cervix and uterus; Z95.820 Peripheral vascular angioplasty status with implants and grafts
CPT/HCPCS: 10030; 36415; 37224; 71045; 75710; 75989; 76937; 80048; 80053; 80069; 80202; 81003; 82272; 82550; 83735; 84100; 84132; 85025; 85347; 85520; 85610; 85651; 86140; 87040; 87070; 87077; 87186; 87205; 87635; 89051; 89060; 93005; 93312; 93321; 93325; 93922; 93926; 99156; 99157; 99285; C1725; G0378; J0171; J0690; J0878; J1644; J1650; J1885; J2250; J2543; J2704; J2710; J2720; J2795; J3010; J3370; J3480; J7060; Q9968; A9575; C1751; C1760; C1769; C1894; C2623; J0282; J0330; J1160; J2310; J7040; J7050; J7120

== ENCOUNTER 2021-06-19 12:02 | Outpatient (CLI) | payer MEDICARE ==
[~2021-06-19 12:02] MED LIST changes: +AMIO200T42 PO; +APIX5TAB PO; +DAPT500V3 IV; +METH-639 PO; +PIPE4.5F2 IV; +POTA-143 PO; -POTA20TA6 PO
[2021-06-19 12:34] LABS: ANION GAP 6 mmol/L (5-15); CALCIUM 9.2 mg/dL (8.5-10.1); CHLORIDE 105 mmol/L (98-107); CREATININE 0.87 mg/dL (0.55-1.02)
== END 2021-06-19 23:59 | disposition home or self-care (01) ==
LOC: LAB 12:02
PROVIDERS: ATTEND Internal Medicine Cardiovascular Disease
DX: I50.33 Acute on chronic diastolic (congestive) heart failure (principal); I49.1 Atrial premature depolarization; I65.23 Occlusion and stenosis of bilateral carotid arteries; I73.9 Peripheral vascular disease, unspecified
CPT/HCPCS: 36415; 80048